=== PATIENT | female | born 1975 | race Caucasian/White ===

== ENCOUNTER 2021-10-21 14:58 | Inpatient (IN) | payer OTHER ==
[~2021-10-21] VITALS: Ht 167.6 cm; Wt 64.0 kg
--- NOTE | 2021-10-21 15:10 | NUR ---
To ER bed 16, c/o LLQ pain radiating to left leg was at urgent care recommend ultrasound and ct abd/pelvis 10/10 pain scale, aaox3, breathing even and non labored, awaiting md crowley
--- NOTE | 2021-10-21 15:20 | NUR ---
URINE SPECIMEN SENT TO LAB
--- NOTE | 2021-10-21 15:30 | NUR ---
DR VITALE AT BEDSIDE
--- NOTE | 2021-10-21 15:50 | NUR ---
US AT BEDSIDE
[2021-10-21] MEDS ORDERED: ONDANSETRON HCL/PF 4 MG/2 ML VIAL ONE ×2 (15:52→18:21)
[2021-10-21] MEDS ORDERED: MORPHINE SULFATE INJ 4 MG/ML DISP.SYRIN ONE (15:52)
[2021-10-21 15:54] LABS: BASOPHILS # (AUTO) 0.1 K/uL (0.0-0.2); EOSINOPHILS % (AUTO) 3.3 % (0.0-6.0); HEMATOCRIT 37 % (33-45); HEMOGLOBIN 12.3 g/dL (11.5-14.8); LYMPHOCYTES # (AUTO) 1.4 K/uL (0.8-4.8); MEAN CORPUSCULAR HGB CONC 33 g/dl (31.0-36.0); MEAN CORPUSCULAR VOLUME 86 fL (82-100); MONOCYTES # (AUTO) 0.5 K/uL (0.1-1.30); MONOCYTES % (AUTO) 8.5 % (2.0-12.0); NEUTROPHILS # (AUTO) 3.6 K/uL (1.8-8.9); NEUTROPHILS % (AUTO) 62.2 % (43.0-81.0); PLATELET COUNT (AUTO) 271 K/uL (150-450); RED BLOOD CELL COUNT(AUTO) 4.32 MIL/uL (4.0-5.2); WHITE BLOOD COUNT (AUTO) 5.8 K/uL (4.3-11.0)
[2021-10-21 16:00] LABS: BILIRUBIN,URINE NEGATIVE (NEGATIVE); COLOR,URINE YELLOW (YELLOW); LEUKOCYTE ESTERASE ,URINE NEGATIVE (NEGATIVE); NITRITE, URINE NEGATIVE (NEGATIVE); PH,URINE 6.5 (5.0-8.0); PROTEIN,URINE NEGATIVE (NEGATIVE); UGLUCOSE NEGATIVE (NEGATIVE); UROBILINOGEN,URINE 0.2 EU/dL (0.2)
[2021-10-21] MEDS ORDERED: MORPHINE SULFATE INJ 2 MG/ML DISP.SYRIN IV ONE ×2 (16:00→18:00)
[2021-10-21] MEDS ORDERED: IV NS 0.9% 1,000 ML BAG IV ONE (16:00)
[2021-10-21] MEDS ORDERED: ONDANSETRON HCL/PF 4 MG/2 ML VIAL IV ONE ×2 (16:00→18:30)
[2021-10-21 16:06] LABS: CREATININE 0.7 mg/dL (0.6-1.3); POTASSIUM 3.6 mmol/L (3.5-5.1)
[2021-10-21 16:14] LABS: ALBUMIN 3.7 g/dL (3.4-5.0); BILIRUBIN,DIRECT 0.1 mg/dL (0.0-0.2); BILIRUBIN,TOTAL 0.3 mg/dL (0.2-1.0); TOTAL PROTEIN, SERUM 7.2 g/dL (6.4-8.2)
--- NOTE | 2021-10-21 16:51 | NUR ---
TAKEN TO CT
[2021-10-21] MEDS ORDERED: IOHEXOL-300 100 ML VIAL IV ONE (16:53)
[2021-10-21] MEDS ORDERED: IV NS 0.9% 250 ML IV ONE (16:53)
--- NOTE | 2021-10-21 18:08 | NUR ---
CALLED DR. LAURIE BUCHANAN [facility] --> [phone] EDUCATION COURSES SALES REPRESENTATIVE PAGED.
[2021-10-21] MEDS ORDERED: MORPHINE SULFATE INJ 2 MG/ML DISP.SYRIN ONE (18:13)
--- NOTE | 2021-10-21 18:22 | NUR ---
CALLED DR. KYARA MARIA SPEAKING WITH DR. VITALE.
--- NOTE | 2021-10-21 18:58 | NUR ---
COVID SWAB DONE AND SENT TO LAB
--- NOTE | 2021-10-21 21:02 | NUR ---
REPORT GIVEN TO CORAL KHAN
--- NOTE | 2021-10-21 21:18 | NUR ---
TRANSFERRED TO [facility] IN STABLE CONDITION
[2021-10-21 21:30] VITALS: BP 98/59
[2021-10-21] MEDS ORDERED: Z GUARD REMEDY 4 OZ OINT TP PRN (21:30)
[2021-10-21] MEDS ORDERED: ONDANSETRON HCL/PF 4 MG/2 ML VIAL IVP PRN (21:30)
[2021-10-21] MEDS ORDERED: MORPHINE SULFATE INJ 2 MG/ML DISP.SYRIN IV PRN (21:30)
[2021-10-21] MEDS ORDERED: MAG HYDROX/AL HYDROX/SIMETH 30 ML UDC PO PRN (21:30)
--- NOTE | 2021-10-21 21:30 | NUR ---
MS INSOLE COVERER NOTES RECEIVED PATIENT FROM ER VIA STRETCHER; AWAKE, ALERT AND ORIENTED X4. ABLE TO MAKE NEEDS KNOWN. ON ROOM AIR, TOLERATING WELL. NO SOB NOTED. NOT IN ANY FORM OF ACUTE DISTRESS. WITH IV ACCESS AT LEFT ANTECUBITAL G#20, SALINE LOCKED. VS TAKEN AND RECORDED FOLLOWS: BP-98/59 MMHG, LA-68BPM, RR-18BPM, TEMP-97.8, PULSE OX O2 SATURATION-100%. SKIN ASSESSMENT DONE; INTACT. SAFETY MEASURES IMPLEMENTED: CALL BUTTON AND TABLE WITHIN EASY REACH, SIDE RAILS UP X2, BED IN LOWEST LOCKED POSITION. WILL CONTINUE TO MONITOR
--- NOTE | 2021-10-21 22:10 | NUR ---
MS RN NOTES PRN SLEEP MED TEMAZEPAM 15 MG 1 CAP GIVEN PO PER PATIENT'S REQUEST; WILL CONTINUE TO MONITOR
[2021-10-22 06:14] LABS: CALCIUM, SERUM 8.4 mg/dL (8.5-10.1); CREATININE 0.7 mg/dL (0.6-1.3); MAGNESIUM 1.8 mg/dL (1.8-2.4); PHOSPHORUS 5.2 mg/dL (2.5-4.9)
[2021-10-22 06:45] LABS: BASOPHILS % (AUTO) 0.9 % (0.0-2.0); EOSINOPHILS % (AUTO) 4.6 % (0.0-6.0); HEMATOCRIT 33 % (33-45); HEMOGLOBIN 10.8 g/dL (11.5-14.8); LYMPHOCYTES # (AUTO) 1.6 K/uL (0.8-4.8); LYMPHOCYTES % (AUTO) 38.3 % (20.0-44.0); MEAN CORPUSCULAR HGB CONC 33 g/dl (31.0-36.0); MEAN CORPUSCULAR VOLUME 85 fL (82-100); MONOCYTES # (AUTO) 0.3 K/uL (0.1-1.30); MONOCYTES % (AUTO) 8.3 % (2.0-12.0); NEUTROPHILS % (AUTO) 47.9 % (43.0-81.0); PLATELET COUNT (AUTO) 219 K/uL (150-450); RED BLOOD CELL COUNT(AUTO) 3.82 MIL/uL (4.0-5.2); WHITE BLOOD COUNT (AUTO) 4.1 K/uL (4.3-11.0)
--- NOTE | 2021-10-22 07:07 | NUR ---
MS RN CLOSING NOTES PATIENT IN BED; AWAKE, A/O X4. ON ROOM AIR, TOLERATING WELL. NOT IN ANY FORM OF ACUTE DISTRESS. SAFETY MEASURES IN PLACE. NEEDS ATTENDED. ENDORSED TO MORNING SHIFT FOR CONTINUITY OF CARE.
--- NOTE | 2021-10-22 07:30 | NUR ---
MS RN OPENING NOTES RECEIVED PATIENT IN BED; AWAKE, A/O X4. ON ROOM AIR, TOLERATING WELL. NOT IN ANY FORM OF ACUTE DISTRESS AND DISCOMFORT. IV IS IN LEFT AC, 20G SL. SAFETY MEASURES IN PLACE. NEEDS ATTENDED. WILL CONTINUE TO MONITOR FOR CONTINUITY OF CARE.
[2021-10-22 08:00] VITALS: BP 128/57
[2021-10-22] MEDS: PANTOPRAZOLE 40 MG TABLET.DR PO SCH (08:41)
[2021-10-22] MEDS: HYDROCODONE/APAP 5/325MG TABLET PO PRN (11:03)
[2021-10-22] MEDS ORDERED: IV NS 0.9% 250 ML IV ONE (13:46)
[2021-10-22] MEDS ORDERED: IOHEXOL-350 100 ML VIAL IV ONE (13:46)
[2021-10-22 16:00] VITALS: BP 101/62
--- NOTE | 2021-10-22 18:57 | NUR ---
MS RN CLOSING NOTES PATIENT IN BED; AWAKE, A/O X4. ON ROOM AIR, TOLERATING WELL. NOT IN ANY FORM OF ACUTE DISTRESS AND DISCOMFORT. IV IS IN LEFT AC, 20G SL. SAFETY MEASURES IN PLACE. NEEDS ATTENDED. WILL ENDORSE PATIENT TO ONCOMING SHIFT FOR CONTINUITY OF CARE.
--- NOTE | 2021-10-22 19:30 | NUR ---
MS RN OPENING NOTE RECEIVED PATIENT IN BED, A/OX4. IN ROOM WITH PATIENT. NO S/S OF APPARENT DISTRESS IN ROOM AIR. PAIN TOLERABLE AT THIS TIME PER PATIENT. ORIENTED AND ENCOURAGED WITH THE USE OF BED LIGHT. NO FLUIDS RUNNING AT THIS TIME. SAFETY IN PLACE. WILL CONTINUE WITH PATIENT'S CARE PLAN.
[2021-10-22 20:00] VITALS: BP 107/71
[2021-10-22] MEDS ORDERED: DEXAMETHASONE SOD PHOSPHATE 10 MG/ML VIAL IV SCH (22:00)
--- NOTE | 2021-10-22 23:00 | NUR ---
MS RN NOTE DR. MARIA TALKED TO PATIENT AND AT BED SIDE. WELL A TELEPHONE CALL FROM DR. WINTER. NEURO DR. CROWE CONSULTED WELL ON BOARD ON PATIENT'S CASE. DOCTOR CANDACE TO ORDER STEROIDS FOR PATIENT. DOCTOR EXPLAINED RISKS AND BENEFITS OF MEDICATION. PATIENT AND AGREED AND ACKNOWLEDGE. WILL FOLLOW THROUGH DOCTOR'S ORDERS.
[2021-10-22] MEDS: DEXAMETHASONE SOD PHOSPHATE 10 MG/ML VIAL IV SCH (23:20)
--- NOTE | 2021-10-22 23:20 | NUR ---
MS RN NOTE DECADRON INJ 6MG ORDERED BY DR. MARIA. ORDER CARRIED OUT. WILL MONITOR PATIENT.
--- NOTE | 2021-10-23 00:17 | NUR ---
MS RN NOTE- NON-ADMIN DECADRON INJ GIVEN @2300. ORDER IS Q6. WILL GIVE NEXT DOSE @0600 AM. CHARGE NURSE AWARE.
[2021-10-23 06:21] LABS: BASOPHILS % (AUTO) 0.2 % (0.0-2.0); HEMATOCRIT 35 % (33-45); HEMOGLOBIN 11.6 g/dL (11.5-14.8); LYMPHOCYTES # (AUTO) 0.5 K/uL (0.8-4.8); LYMPHOCYTES % (AUTO) 8.1 % (20.0-44.0); MEAN CORPUSCULAR HGB CONC 33 g/dl (31.0-36.0); MEAN CORPUSCULAR VOLUME 85 fL (82-100); MONOCYTES # (AUTO) 0.1 K/uL (0.1-1.30); MONOCYTES % (AUTO) 0.8 % (2.0-12.0); NEUTROPHILS % (AUTO) 90.9 % (43.0-81.0); PLATELET COUNT (AUTO) 249 K/uL (150-450); RED BLOOD CELL COUNT(AUTO) 4.12 MIL/uL (4.0-5.2); WHITE BLOOD COUNT (AUTO) 6.6 K/uL (4.3-11.0)
[2021-10-23] MEDS: DEXAMETHASONE SOD PHOSPHATE 10 MG/ML VIAL IV SCH ×4 (06:23→17:13)
[2021-10-23 06:35] LABS: ALBUMIN 3.3 g/dL (3.4-5.0); BILIRUBIN,TOTAL 0.2 mg/dL (0.2-1.0); CALCIUM, SERUM 8.8 mg/dL (8.5-10.1); CREATININE 0.8 mg/dL (0.6-1.3); TOTAL PROTEIN, SERUM 6.4 g/dL (6.4-8.2)
[2021-10-23 06:40] LABS: THYROID STIMULATING HORMONE 1.58 uIU/mL (0.358-3.74)
--- NOTE | 2021-10-23 07:30 | NUR ---
MS RN OPENING NOTE RECEIVED PATIENT IN BED, ASLEEP, EASILY AWAKEN BY VERBAL AND TACTILE STIMULI. NO S/S OF APPARENT DISTRESS IN ROOM AIR. PAIN TOLERABLE AT THIS TIME PER PATIENT. IV ACCESS ON LAC G#20, PATENT AND FLUSHES WELL. SAFETY PRECAUTIONS IN PLACE: BED ON LOWEST LOCKED POSITION, SIDE RAILS UP X 2, CALL LIGHT WITHIN EASY REACH. WILL CONTINUE TO MONITOR ACCORDINGLY.
--- NOTE | 2021-10-23 07:37 | NUR ---
MS RN CLOSING REPORT GIVEN TO WINSTON FOR CONTINUITY OF CARE.
[2021-10-23] MEDS: PANTOPRAZOLE 40 MG TABLET.DR PO SCH (07:44)
[2021-10-23 08:00] VITALS: BP 107/60
[2021-10-23] MEDS: HYDROCODONE/APAP 5/325MG TABLET PO PRN ×2 (09:48→19:55)
--- NOTE | 2021-10-23 10:09 | NUR ---
ATTEMPTED US THYROID AND GROIN EXAM AT 9:30 AM RN STOPPED THE ULTRASOUND EXAM TO SEND PT TO MRI. SHE WAS INFORMED THAT ULTRASOUND EXAM MIGHT BE DELAYED LATER DUE TO UPCOMING ER EXAMS.
--- NOTE | 2021-10-23 14:10 | NUR ---
RN NOTES MRI RESULTS RELAYED TO DR. WINTER AND DR. MARIA.
[2021-10-23 16:00] VITALS: BP_SYST 104; BP_SYST 109; BP_DIAS 60
[2021-10-23] MEDS: GABAPENTIN 300 MG CAPSULE PO SCH ×2 (17:29→17:45)
--- NOTE | 2021-10-23 18:37 | NUR ---
MS RN CLOSING NOTE PATIENT IN BED, ASLEEP, EASILY AWAKEN BY VERBAL AND TACTILE STIMULI. NO S/S OF APPARENT DISTRESS IN ROOM AIR. PAIN TOLERABLE AT THIS TIME PER PATIENT. IV ACCESS ON LAC G#20, PATENT AND FLUSHES WELL. SAFETY PRECAUTIONS IN PLACE: BED ON LOWEST LOCKED POSITION, SIDE RAILS UP X 2, CALL LIGHT WITHIN EASY REACH. ALL NEEDS ATTENDED AND MET. DUE MEDS GIVEN ORDERED. PAIN MANAGED BY PAIN MEDICATION DURING THE SHIFT. WILL ENDORSE TO ONCOMING SHIFT FOR ISABEL.
[2021-10-23 20:00] VITALS: BP 109/64
--- NOTE | 2021-10-23 20:00 | NUR ---
MS RN NOTE PATIENT C/O LEFT GROIN AND RIGHT HIP PAIN, WELL HEADACHE. NORCO 5-325 MG PO GIVEN ORDERED. WILL CONTINUE TO MONITOR PATIENT
[2021-10-23] MEDS: ACETAMINOPHEN 325 MG TABLET PO PRN (21:34)
--- NOTE | 2021-10-23 21:34 | NUR ---
MS RN NOTE PATIENT STILL EXPERIENCING HEADACHE, TYLENOL 650 MG PO GIVEN ORDERED. WILL CONTINUE TO MONITOR PATIENT
[2021-10-23] MEDS: TEMAZEPAM 15 MG CAPSULE PO PRN (23:52)
--- NOTE | 2021-10-24 07:04 | NUR ---
MS RN CLOSING NOTE PATIENT SLEEPING IN BED, ALERT/ORIENTED X 4, PT ABLE TO MAKE NEEDS KNOWN. PATIENT STABLE ON RA, NO S/S OF DISTRESS OR SOB NOTED, BREATHING EVEN AND UNLABORED. MEDICATIONS GIVEN ORDERED, PT NEEDS MET THROUGHOUT SHIFT. SAFETY MEASURES IN PLACE: CALL LIGHT WITHIN REACH, SIDE RAILS UP X 2, BED LOCKED IN LOWEST POSITION, BED ALARM ON. WILL ENDORSE TO DAY SHIFT NURSE FOR CONTINUITY OF CARE
--- NOTE | 2021-10-24 07:55 | NUR ---
MS RN OPENING NOTE Patient in bed, awake. A/O x 4, able to make needs known. On room air, breathing evenly and unlabored. No SOB or s/s of distress noted. IV access on LAC #20 SL, intact and patent. Patient denies any pain or discomfort at this time. Safety precautions in place: bed in low, locked position; siderails up x 2; call light within reach. Will continue to monitor.
[2021-10-24 08:06] LABS: CANCER AG, 125 10.8 U/mL (0.0-38.1); IMMUNOGLOBULIN A, SERUM 309 mg/dL (87-352); IMMUNOGLOBULIN G, SERUM 798 mg/dL (586-1602); IMMUNOGLOBULIN M, SERUM 151 mg/dL (26-217)
[2021-10-24] MEDS: GABAPENTIN 300 MG CAPSULE PO SCH ×2 (08:21→16:45)
[2021-10-24] MEDS: PANTOPRAZOLE 40 MG TABLET.DR PO SCH (08:21)
[2021-10-24] MEDS: DEXAMETHASONE SOD PHOSPHATE 10 MG/ML VIAL IV SCH ×2 (08:22→21:44)
[2021-10-24] MEDS: HYDROCODONE/APAP 5/325MG TABLET PO PRN ×2 (09:46→21:55)
--- NOTE | 2021-10-24 09:46 | NUR ---
RN NOTE Patient complained of pain on the right side of her rib area 7/10 on pain scale. PRN [place] 5/325 PO given. Will continue to monitor patient.
--- NOTE | 2021-10-24 19:33 | NUR ---
MS RN CLOSING NOTE Patient in bed, awake. A/O x 4, able to make needs known. Stable on room air, breathing evenly and unlabored. No SOB or s/s of distress noted. IV access on LAC #20 SL, intact and patent. Patient states that she feels better today than yesterday. Due meds given. All needs attended to. Safety precautions maintained: bed in low, locked position; siderails up x 2; call light within reach. Will endorse to evening or night nurse supervisor nurse for ISABEL.
--- NOTE | 2021-10-24 20:30 | NUR ---
MS RN NOTE PATIENT REQUESTING TO SHOWER, CONTACTED TOOL AND DIE SUPERVISOR MD WITH ORDERS OKAY TO SHOWER. ASSISTED PATIENT TO SHOWER, SHOWER CHAIR IN SHOWER, TOWELS AND GOWN PROVIDED. ASSISTING PATIENT TO SHOWER. WILL CONTINUE TO MONITOR
[2021-10-24] MEDS: TEMAZEPAM 15 MG CAPSULE PO PRN (23:16)
[2021-10-25 06:20] LABS: BASOPHILS % (AUTO) 0.1 % (0.0-2.0); HEMATOCRIT 32 % (33-45); HEMOGLOBIN 10.6 g/dL (11.5-14.8); LYMPHOCYTES # (AUTO) 0.7 K/uL (0.8-4.8); LYMPHOCYTES % (AUTO) 5.8 % (20.0-44.0); MEAN CORPUSCULAR HGB CONC 33 g/dl (31.0-36.0); MEAN CORPUSCULAR VOLUME 85 fL (82-100); MONOCYTES # (AUTO) 0.3 K/uL (0.1-1.30); MONOCYTES % (AUTO) 2.5 % (2.0-12.0); NEUTROPHILS # (AUTO) 11.6 K/uL (1.8-8.9); NEUTROPHILS % (AUTO) 91.6 % (43.0-81.0); PLATELET COUNT (AUTO) 233 K/uL (150-450); RED BLOOD CELL COUNT(AUTO) 3.77 MIL/uL (4.0-5.2); WHITE BLOOD COUNT (AUTO) 12.7 K/uL (4.3-11.0)
--- NOTE | 2021-10-25 07:19 | NUR ---
MS RN CLOSING NOTE PATIENT SLEEPING IN BED, ALERT/ORIENTED X 4, PT ABLE TO MAKE NEEDS KNOWN. PATIENT STABLE ON RA, NO S/S OF DISTRESS OR SOB NOTED, BREATHING EVEN AND UNLABORED. MEDICATIONS GIVEN ORDERED, PT NEEDS MET THROUGHOUT SHIFT. PATIENT KEPT NPO THROUGHOUT SHIFT FOR PROCEDURE TODAY. SAFETY MEASURES IN PLACE: CALL LIGHT WITHIN REACH, SIDE RAILS UP X 2, BED LOCKED IN LOWEST POSITION, BED ALARM ON. WILL ENDORSE TO DAY SHIFT NURSE FOR CONTINUITY OF CARE
--- NOTE | 2021-10-25 07:21 | NUR ---
ms rn received on bed, awake,alert oriented x4,not in any form of distress, respirations even and unlabored,no sob noted, lungs are clear,abdomen soft,positive bowel sounds, denies pain at this time,all needs attended.
[2021-10-25 08:00] VITALS: BP 111/62
--- NOTE | 2021-10-25 09:50 | NUR ---
ms rn due meds ,tolerated well, patient is npo exept meds, for thyroid biopsy and iliac biopsy today.
[2021-10-25] MEDS: DEXAMETHASONE SOD PHOSPHATE 10 MG/ML VIAL IV SCH (11:00)
[2021-10-25] MEDS: GABAPENTIN 300 MG CAPSULE PO SCH ×2 (11:00→18:37)
[2021-10-25] MEDS: PANTOPRAZOLE 40 MG TABLET.DR PO SCH (11:00)
[2021-10-25] MEDS ORDERED: oxyCODONE/APAP (5/325 MG) 1 UDTAB TABLET PO PRN (12:00)
--- NOTE | 2021-10-25 12:00 | NUR ---
ms manpreet storey np confirmed that both biopsy procedure will be done in am due to no available pathologist today.
[2021-10-25 15:07] LABS: *SPE A/G RATIO 1.1 (0.7-1.7); *SPE ALPHA-1-GLOBULIN 0.2 g/dL (0.0-0.4); *SPE ALPHA-2-GLOBULIN 0.7 g/dL (0.4-1.0); *SPE M-SPIKE Not Observed g/dL (Not Observed)
[2021-10-25 16:00] VITALS: BP 103/56
--- NOTE | 2021-10-25 17:30 | NUR ---
ms rn on bed, due meds given, tolerarted well,
--- NOTE | 2021-10-25 18:16 | NUR ---
ms rn on bed, no distress noted,nppo post mn, patient is aware.
[2021-10-25] MEDS: DEXAMETHASONE SOD PHOSPHATE 4 MG/ML VIAL IV SCH (18:37)
[2021-10-25] MEDS: MAGNESIUM HYDROXIDE 30 ML UDC PO PRN (18:45)
--- NOTE | 2021-10-25 20:20 | NUR ---
RN OPENING NOTE PATIENT AWAKE IN BED W/ AT BEDSIDE. A/OX4. NO S/S OF DISTRESS, BREATHING WELL ON RM AIR. LAC #20 SL INTACT AND PATENT. SAFETY MEASURES IN PLACE: BED AT LOWEST POSITION, LOCKED, RAILS UP X3, CALL BURNS WITHIN REACH. WILL CONTINUE TO MONITOR PATIENT.
[2021-10-25] MEDS: HYDROCODONE/APAP 5/325MG TABLET PO PRN (21:38)
[2021-10-25] MEDS: TEMAZEPAM 15 MG CAPSULE PO PRN (22:55)
[2021-10-26] VITALS (11 sets, daily range): BP systolic 96–121; BP diastolic 46–76
[2021-10-26 06:42] LABS: HEMATOCRIT 33 % (33-45); LYMPHOCYTES # (AUTO) 1.3 K/uL (0.8-4.8); LYMPHOCYTES % (AUTO) 8.4 % (20.0-44.0); MEAN CORPUSCULAR HGB CONC 33 g/dl (31.0-36.0); MEAN CORPUSCULAR VOLUME 86 fL (82-100); MONOCYTES # (AUTO) 0.9 K/uL (0.1-1.30); MONOCYTES % (AUTO) 5.7 % (2.0-12.0); NEUTROPHILS # (AUTO) 13.2 K/uL (1.8-8.9); NEUTROPHILS % (AUTO) 85.9 % (43.0-81.0); PLATELET COUNT (AUTO) 231 K/uL (150-450); RED BLOOD CELL COUNT(AUTO) 3.85 MIL/uL (4.0-5.2); WHITE BLOOD COUNT (AUTO) 15.4 K/uL (4.3-11.0)
--- NOTE | 2021-10-26 06:51 | NUR ---
RN CLOSING NOTE PATIENT ASLEEP IN BED. A/OX4. NO S/S OF DISTRESS, BREATHING WELL ON ROOM AIR. LAC #20 SL INTACT AND PATENT. SAFETY MEASURES IN PLACE: BED AT LOWEST POSITION, LOCKED, RAILS UP X3, CALL BURNS WITHIN REACH. Addendum: 10/26/21 at 0792 by GIUSEPPE NOYOLA RN REPORT GIVEN AND ACKNOWLEDGED BY RNLIN FOR ISABEL.
--- NOTE | 2021-10-26 07:30 | NUR ---
received pt. in am alert and oriented x4,vs stable.no complaints offered.npo except for meds.
[2021-10-26] MEDS: GABAPENTIN 300 MG CAPSULE PO SCH ×2 (10:27→17:22)
[2021-10-26] MEDS: PANTOPRAZOLE 40 MG TABLET.DR PO SCH (10:27)
[2021-10-26] MEDS: DEXAMETHASONE SOD PHOSPHATE 4 MG/ML VIAL IV SCH (10:27)
[2021-10-26] MEDS ORDERED: FENTANYL PF 100MCG/2ML AMPUL IV PRN (11:00)
[2021-10-26] MEDS ORDERED: MIDAZOLAM HCL 2 MG/2ML VIAL IV ONE ×2 (11:00→12:48)
--- NOTE | 2021-10-26 11:10 | NUR ---
RN NOTES RECEIVED PT IN CT ROOM , A/OX3, ON RA, O2 SAT WNL, VSS STABLE , NO DISRESS NOTED , CONTINUE TO MONITOR.
[2021-10-26] MEDS ORDERED: FLUMAZENIL 0.5 MG VIAL IV PRN (11:30)
[2021-10-26] MEDS ORDERED: NALOXONE PREFILLED SYRINGE 2 MG/2 ML SYRINGE IV PRN (11:30)
[2021-10-26] MEDS: MIDAZOLAM HCL 2 MG/2ML VIAL IV PRN ×2 (11:47→11:51)
[2021-10-26] MEDS: FENTANYL PF 250MCG/5ML AMPUL IV PRN ×3 (11:49→12:23)
--- NOTE | 2021-10-26 12:18 | NUR ---
RN NOTES VSS STABLE , PT TOLERTING THE PROCEDURE WELL, DR CESPEDES AT THE BED SIDE ,CONTINUE TO MONITOR.
--- NOTE | 2021-10-26 12:40 | NUR ---
RN NOTES VSS STABLE PT TOLERATED THE PROCEDURE WELL, NO DISTRESS NOTED, PT BACK TO ROOM PER MD ORDER ,
--- NOTE | 2021-10-26 12:43 | NUR ---
RN NOTES PT BACK TO ROOM ,STABLE , VERBALLY RESPONDING , FOLLOWS COMMAND, DRAWZY, REPORT GIVEN TO KING MONCADA FOR CONTINUITY OF CARE
[2021-10-26] MEDS ORDERED: FENTANYL PF 100MCG/2ML AMPUL IV ONE (12:48)
--- NOTE | 2021-10-26 13:30 | NUR ---
returned from ct rm.vs stable,very groggy,but arousable.
--- NOTE | 2021-10-26 16:30 | NUR ---
slept for several hrs after bx.vs stable,voided,steady on ft.
--- NOTE | 2021-10-26 18:00 | NUR ---
spouse at bedside all day.
[2021-10-26] MEDS: HYDROCODONE/APAP 5/325MG TABLET PO PRN (20:50)
[2021-10-27 07:42] LABS: BASOPHILS % (AUTO) 0.1 % (0.0-2.0); EOSINOPHILS % (AUTO) 0.1 % (0.0-6.0); HEMATOCRIT 33 % (33-45); LYMPHOCYTES # (AUTO) 2.1 K/uL (0.8-4.8); LYMPHOCYTES % (AUTO) 22.3 % (20.0-44.0); MEAN CORPUSCULAR HGB CONC 34 g/dl (31.0-36.0); MEAN CORPUSCULAR VOLUME 85 fL (82-100); MONOCYTES # (AUTO) 0.8 K/uL (0.1-1.30); MONOCYTES % (AUTO) 8.5 % (2.0-12.0); NEUTROPHILS # (AUTO) 6.4 K/uL (1.8-8.9); PLATELET COUNT (AUTO) 234 K/uL (150-450); RED BLOOD CELL COUNT(AUTO) 3.87 MIL/uL (4.0-5.2); WHITE BLOOD COUNT (AUTO) 9.3 K/uL (4.3-11.0)
[2021-10-27 07:43] LABS: CALCIUM, SERUM 8.3 mg/dL (8.5-10.1); CREATININE 0.6 mg/dL (0.6-1.3); POTASSIUM 3.9 mmol/L (3.5-5.1)
[2021-10-27 08:00] VITALS: BP 100/65
--- NOTE | 2021-10-27 08:00 | NUR ---
RECEIVED PT. IN AM ALERT AND ORIENTED,IN [employer] SP[employer]ITS,VS STABLE.
[2021-10-27] MEDS: GABAPENTIN 300 MG CAPSULE PO SCH ×2 (08:14→17:28)
[2021-10-27] MEDS: PANTOPRAZOLE 40 MG TABLET.DR PO SCH (08:14)
[2021-10-27 09:08] LABS: CANCER AG, 15-3 8.6 U/mL (0.0-25.0)
[2021-10-27 13:51] LABS: IRON, SERUM 35 ug/dl (50-175); TOTAL IRON BINDING CAPACITY 271 ug/dl (250-450)
[2021-10-27 14:06] LABS: FERRITIN 5 ng/mL (8-388)
[2021-10-27 16:07] VITALS: BP 102/65
--- NOTE | 2021-10-27 17:00 | NUR ---
IV REMOVED PER PT. REQUEST.C/O PAIN ABOVE IV SITE LT. AC,REMOVED HEP LOCK.ICE PACK TO SITE.
[2021-10-27] MEDS: MAGNESIUM HYDROXIDE 30 ML UDC PO PRN (17:34)
--- NOTE | 2021-10-27 18:23 | NUR ---
GIVEN MOM FOR CONSTIPATION.
--- NOTE | 2021-10-27 19:42 | NUR ---
MS RN OPENING NOTES RECEIVED PATIENT LYING IN BED AWAKE. A/O X4. ON BEDSIDE. DENIES PAIN AT THIS TIME. BREATHING EVEN AND NON-LABORED ON ROOM AIR. NOT IN APPARENT DISTRESS. NO IV ACCESS. MILD REDNESS STILL NOTED ON LEFT ANTECUBITAL IV SITE. SAFETY MEASURES IN PLACE. WILL CONTINUE PLAN OF CARE.
[2021-10-27 20:00] VITALS: BP 107/62
[2021-10-27] MEDS: HYDROCODONE/APAP 5/325MG TABLET PO PRN (20:46)
--- NOTE | 2021-10-27 20:48 | NUR ---
MS RN NOTES PATIENT C/O PAIN 7/10 ON HER LEFT GROIN RADIATING TO HER LEFT LEG. VS WNL. PRN [place]CO 5-325 ADMINISTERED AND TOLERATED WELL. OFFERED TO RE-INSERT ANOTHER IV ACCESS BUT PATIENT REFUSED. EXPLAINED IMPORTANCE, STILL REFUSED AND VERBALIZED SHE WANTS THE PREVIOUS IV SITE TO HEAL FIRST.
--- NOTE | 2021-10-28 06:35 | NUR ---
MS RN CLOSING NOTES PATIENT LYING IN BED AWAKE. A/O X4. TOLERATING ROOM AIR WELL. NO C/O PAIN OR DISCOMFORT AT THIS TIME. NO IV ACCESS. HAD 1 BM LAST NIGHT BUT PATIENT DIDN'T INFORM NURSE. UNABLE TO COLLECT STOOL SAMPLE, WILL ENDORSE TO AM NURSE. SAFETY PRECAUTIONS IN PLACE: BED LOW AND LOCKED, SIDE RAILS UP X2, CALL LIGHT WITHIN REACH.
[2021-10-28 07:03] LABS: CALCIUM, SERUM 8.4 mg/dL (8.5-10.1); CREATININE 0.7 mg/dL (0.6-1.3)
[2021-10-28 07:11] LABS: BASOPHILS % (AUTO) 0.4 % (0.0-2.0); EOSINOPHILS % (AUTO) 0.3 % (0.0-6.0); HEMATOCRIT 33 % (33-45); HEMOGLOBIN 11.3 g/dL (11.5-14.8); LYMPHOCYTES % (AUTO) 14.6 % (20.0-44.0); MEAN CORPUSCULAR HGB CONC 34 g/dl (31.0-36.0); MEAN CORPUSCULAR VOLUME 84 fL (82-100); MONOCYTES # (AUTO) 0.6 K/uL (0.1-1.30); MONOCYTES % (AUTO) 9.5 % (2.0-12.0); NEUTROPHILS % (AUTO) 75.2 % (43.0-81.0); PLATELET COUNT (AUTO) 192 K/uL (150-450); RED BLOOD CELL COUNT(AUTO) 3.95 MIL/uL (4.0-5.2); WHITE BLOOD COUNT (AUTO) 6.7 K/uL (4.3-11.0)
--- NOTE | 2021-10-28 07:48 | NUR ---
MS RN OPENING NOTE Patient in bed, asleep. A/O x 4. On room air, breathing evenly and unlabored. No SOB or s/s of distress noted. No IV access, Dr. Nair aware. Safety precautions in place: bed in low, locked position; sideails up x 2; call light within reach. Will continue to monitor.
[2021-10-28] MEDS: PANTOPRAZOLE 40 MG TABLET.DR PO SCH (08:23)
[2021-10-28] MEDS: GABAPENTIN 300 MG CAPSULE PO SCH ×2 (08:23→16:18)
[2021-10-28] MEDS: ACETAMINOPHEN 325 MG TABLET PO PRN (11:07)
--- NOTE | 2021-10-28 11:26 | NUR ---
RN NOTE Patient complained of increased sweating, being hot, dizziness, headache, and increased weakness. VS taken as follows: Temp 98.5, BP 118/76, FL 81/min, RR 19, SPO2 98%. Cooling measures given: ice packs placed under both arms, asked patient to drink cold water, wet wash cloth placed on patient's forehead. Tylenol 650 mg PRN given for headache. Dr. Hurd and Dr. Nair notified. No new orders at this time.
--- NOTE | 2021-10-28 12:00 | NUR ---
RN NOTE IV re-insertion attempted, failed x1. Patient refused to be re-inserted again.
[2021-10-28] MEDS ORDERED: GADOTERATE MEGLUMINE 5 MMOL/10 ML VIAL IV ONE (12:10)
--- NOTE | 2021-10-28 12:39 | NUR ---
RN NOTE Patient states that she is feeling better. Headache is still there but has subsided. Patient now sitting up in bed, eating lunch. Will continue to monitor.
--- NOTE | 2021-10-28 15:20 | NUR ---
RN NOTE Report given to Silivo from [facility]. Addendum: 10/28/21 at 1906 by PRADIP CHAMBERLAIN RN CORRECTION: WRONG PATIENT
--- NOTE | 2021-10-28 19:15 | NUR ---
MS RN OPENING NOTES RECEIVED PATIENT IN BED; AWAKE, ALERT AND ORIENTED X4. ON ROOM AIR, WELL TOLERATED. NO SHORTNESS OF BREATH NOTED. NOT IN ANY FORM OF RESPIRATORY DISTRESS. DENIES ANY PAIN OR DISCOMFORT AT THIS TIME. NO IV ACCESS. ABLE TO MAKE NEEDS KNOWN. SAFETY MEASURES IMPLEMENTED: CALL BUTTON AND TABLE WITHIN EASY REACH, SIDE RAILS UP X2, BED IN LOWEST LOCKED POSITION. WILL CONTINUE PLAN OF CARE.
--- NOTE | 2021-10-28 19:32 | NUR ---
MS RN CLOSING NOTE Patient in bed, resting. A/O x 4, able to make needs known. Stable on room air, breathing evenly and unlabored. No SOB or s/s of distress noted. No IV access, Dr. Nair aware. Due meds given. All needs attended to. Safety precautions maintained: bed in low, locked position; siderails up x 2; call light within reach. Will endorse to shift commander nurse for ISABEL.
[2021-10-28 20:00] VITALS: BP 110/77
[2021-10-28 20:05] VITALS: BP 110/77
[2021-10-28 22:23] LABS: OCCULT BLOOD STOOL NEGATIVE (NEGATIVE)
[2021-10-29] MEDS: ACETAMINOPHEN 325 MG TABLET PO PRN (01:37)
[2021-10-29 06:22] LABS: BASOPHILS % (AUTO) 0.5 % (0.0-2.0); EOSINOPHILS % (AUTO) 1.5 % (0.0-6.0); HEMATOCRIT 34 % (33-45); HEMOGLOBIN 11.5 g/dL (11.5-14.8); LYMPHOCYTES # (AUTO) 1.1 K/uL (0.8-4.8); LYMPHOCYTES % (AUTO) 24.4 % (20.0-44.0); MEAN CORPUSCULAR HGB CONC 34 g/dl (31.0-36.0); MEAN CORPUSCULAR VOLUME 84 fL (82-100); MONOCYTES # (AUTO) 0.5 K/uL (0.1-1.30); MONOCYTES % (AUTO) 12.4 % (2.0-12.0); NEUTROPHILS # (AUTO) 2.6 K/uL (1.8-8.9); NEUTROPHILS % (AUTO) 61.2 % (43.0-81.0); PLATELET COUNT (AUTO) 194 K/uL (150-450); WHITE BLOOD COUNT (AUTO) 4.3 K/uL (4.3-11.0)
[2021-10-29 06:52] LABS: CALCIUM, SERUM 8.5 mg/dL (8.5-10.1); CREATININE 0.6 mg/dL (0.6-1.3); POTASSIUM 3.8 mmol/L (3.5-5.1)
--- NOTE | 2021-10-29 06:55 | NUR ---
MS RN CLOSING NOTES PATIENT LYING IN BED; ALERT, AWAKE AND ORIENTED X4. ON ROOM AIR WELL TOLERATED. DENIES ANY PAIN OR DISCOMFORT AT THIS TIME. NO IV ACCESS. SAFETY PRECAUTIONS IN PLACE: BED LOW AND LOCKED, SIDE RAILS UP X2, CALL LIGHT WITHIN REACH. ENDORSED TO MORNING SHIFT FOR ISABEL.
--- NOTE | 2021-10-29 07:20 | NUR ---
ms rn received on bed, awake,alert,oriented x4,not in any form of distress, respirations even and unlabored,no sob noted, lungs are clear.abdomen soft,positive bowel sounds,denies pain at this time, all needs attended.
[2021-10-29] MEDS: PANTOPRAZOLE 40 MG TABLET.DR PO SCH (08:15)
[2021-10-29] MEDS: GABAPENTIN 300 MG CAPSULE PO SCH ×2 (08:15→16:37)
--- NOTE | 2021-10-29 08:30 | NUR ---
ms case breakfast served,due meds given, tolerated well.
--- NOTE | 2021-10-29 11:44 | NUR ---
ms rn patient is regularly asking and given pain meds, family at bedside. Addendum: 10/29/21 at 1146 by DONATO BASS RN disregard note, wrong patient
--- NOTE | 2021-10-29 16:28 | NUR ---
Biopsy slides and CD received. According to pathologist no special storing needed, to keep in room temperature and give to ambulance staff. Slides are secured and will be transported with pt to other hospital. Will indorse to next shift.
--- NOTE | 2021-10-29 17:19 | NUR ---
ms rn on bed, no distress noted,might be transferred to [facility],all needs attended.
[2021-10-29 20:00] VITALS: BP 92/59
[2021-10-29 20:15] VITALS: BP 92/59
--- NOTE | 2021-10-29 21:30 | NUR ---
MS RN NOTES DISCLOSURE OF HEALTH INFORMATION SIGNED BY PATIENT; HANDED TO PATIENT COPIES OF PATHOLOGY REPORT PER PATIENT'S REQUEST.
--- NOTE | 2021-10-30 07:06 | NUR ---
MS RN CLOSING NOTES PATIENT LAYING IN BED; ALERT, AWAKE AND ORIENTED X4. ON ROOM AIR WELL TOLERATED. DENIES ANY PAIN OR DISCOMFORT AT THIS TIME. NO IV ACCESS. SAFETY PRECAUTIONS IN PLACE: BED LOW AND LOCKED, SIDE RAILS UP X2, CALL LIGHT WITHIN REACH. ENDORSED TO MORNING SHIFT FOR ISABEL.
--- NOTE | 2021-10-30 07:25 | NUR ---
ms rn received on bed, awake,alert,oriented x4,not in any form of distress, respirations even and unlabored,no sob noted, lungs are clear,abdomen soft,positive bowel sounds, denies pain at this time, will monitor patient's condition.
[2021-10-30] MEDS: PANTOPRAZOLE 40 MG TABLET.DR PO SCH (07:50)
[2021-10-30 08:00] VITALS: BP 100/61
--- NOTE | 2021-10-30 09:00 | NUR ---
ms case breakfast served,due meds given,tolerated well.
[2021-10-30] MEDS: GABAPENTIN 300 MG CAPSULE PO SCH ×2 (09:33→17:36)
--- NOTE | 2021-10-30 14:49 | NUR ---
ms rn patient done showering, at bedside.
[2021-10-30 16:00] VITALS: BP 113/74
--- NOTE | 2021-10-30 19:05 | NUR ---
MS RN OPENING NOTES: RECEIVED PATIENT IN BED, AWAKE, A/O X4. NO S/S OF DISTRESS NOTED. NO COMPLAIN OF PAIN. CALL LIGHT WITHIN REACH. BED IN LOWEST AND LOCKED POSITION.
[2021-10-30 20:00] VITALS: BP 103/62
[2021-10-30] MEDS: HYDROCODONE/APAP 5/325MG TABLET PO PRN (20:45)
[2021-10-30] MEDS: MAGNESIUM HYDROXIDE 30 ML UDC PO PRN (20:50)
--- NOTE | 2021-10-31 07:29 | NUR ---
MS RN OPENING NOTES RECEIVED PATIENT AWAKE IN BED;PATIENT IS ALERT AND ORIENTED X4. ON ROOM AIR TOLERATING WELL. NO SHORTNESS OF BREATH NOTED. NO RESPIRATORY DISTRESS NOTED. DENIES ANY PAIN OR DISCOMFORT AT THIS TIME. NO IV ACCESS. ABLE TO MAKE NEEDS KNOWN. SAFETY MEASURES IN PLACE. CALL BUTTON AND TABLE WITHIN EASY REACH, SIDE RAILS UP X2, BED IN LOWEST LOCKED POSITION. WILL CONTINUE TO MONITOR.
[2021-10-31] MEDS: PANTOPRAZOLE 40 MG TABLET.DR PO SCH (07:57)
[2021-10-31] MEDS: GABAPENTIN 300 MG CAPSULE PO SCH (08:15)
--- NOTE | 2021-10-31 11:26 | NUR ---
RN NOTES RECEIVED A CALL FROM [facility] . KIERAN THE PATIENT GRAPHICS EDITOR. HE GAVE HIS NUMBER [phone] TO BE CALLED BY CLAIMS AUDITOR. CALLED [facility] EXT [phone] REPORTED THE REQUEST.
--- NOTE | 2021-10-31 14:52 | NUR ---
RN NOTES GAVE REPORT TO HEATH AT TIME 1454 . PHONE NUMBER [phone]. JOVANA VARELA
--- NOTE | 2021-10-31 15:35 | NUR ---
WORKFORCE ADVISOR NOTES DISCHARGE PATIENT IN STABLE CONDITION. NO PAIN NOTED. NO SOB NOTED. NO DISTRESS NOTED. MEDICALLY STABLE. NO IV SITE. REMOVED ID BAN . ALL NEEDS ATTENDED. 2 EMT WITH AMBULANCE TRANSFER THE PATIENT AT 1537 TO THE [facility]. VITAL SIGNS IN NORMAL RANGES. PATIENT LEFT HOSPITAL IN STABLE CONDITION. MD AND CHARGE NURSE AWARE OF THE DISCHARGE.
== END 2021-10-31 15:30 | disposition short-term general hospital (02) | DRG 427 ==
LOC: ER 15:05 → TELE 21:07 → MED 22:10
PROVIDERS: ADMIT Nurse Practitioner Acute Care; ATTEND Internal Medicine
PROC: 0QB23ZX Excision of Right Pelvic Bone, Percutaneous Approach, Diagnostic (ICD-10-PCS; principal; 2021-10-26)
PROC: 0GBG3ZX Excision of Left Thyroid Gland Lobe, Percutaneous Approach, Diagnostic (ICD-10-PCS; 2021-10-26)
DX: C73 Malignant neoplasm of thyroid gland (principal); C79.51 Secondary malignant neoplasm of bone; D64.9 Anemia, unspecified; G54.9 Nerve root and plexus disorder, unspecified; G89.29 Other chronic pain; K59.03 Drug induced constipation; Z20.822 Contact with and (suspected) exposure to COVID-19; Z88.8 Allergy status to other drugs, medicaments and biological substances; Z98.890 Other specified postprocedural states; R59.0 Localized enlarged lymph nodes; Z86.018 Personal history of other benign neoplasm; N20.0 Calculus of kidney; T40.605A Adverse effect of unspecified narcotics, initial encounter; Y92.9 Unspecified place or not applicable
CPT/HCPCS: 10021; 36415; 71260-TC; 72156-TC; 72157-TC; 72158-TC; 76536-TC; 76641-TC; 76856-TC; 77012-TC; 80048-TC; 80053-TC; 80076-TC; 82272-TC; 82378; 82607-TC; 82728-TC; 82784; 83540-TC; 83615-TC; 83735-TC; 84100-TC; 84155; 84165; 84439-TC; 84443-TC; 84703-TC; 85025-TC; 85610-TC; 85730-TC; 86300; 86304; 86334; 86704; 86706; 86800; 86803; 87081-TC; 87340; 87491; 87591; 88173-TC; 88305-TC; 93971-TC; 97116-TC; 97530-TC; 97535-TC; A9575; C9803; G0378; J1100; J2250; J2270; J2405; J3010; J7030; J7050; Q9967

== ENCOUNTER 2023-10-02 18:44 | Emergency (ER) | payer MEDICAID, OTHER ==
[~2023-10-02] VITALS: Ht 165.1 cm; Wt 55.3 kg
[2023-10-02 19:30] VITALS: TEMP 97.8
[2023-10-02] MEDS ORDERED: ACETAMINOPHEN 325 MG TABLET ONE (19:46)
[2023-10-02] MEDS: ACETAMINOPHEN 325 MG TABLET PO ONE (19:51)
[2023-10-02] MEDS ORDERED: ACET325C7 PO (21:41)
[2023-10-02] MEDS ORDERED: IBUP-1955 PO (21:41)
[2023-10-02 21:55] VITALS: BP 121/68; O2SAT 98
== END 2023-10-02 21:56 | disposition home or self-care (01) ==
LOC: ER 18:48
DX: M54.2 Cervicalgia (principal); R51.9 Headache, unspecified; Z98.890 Other specified postprocedural states; Z79.899 Other long term (current) drug therapy; V43.32XA Unspecified car occupant injured in collision with other type car in nontraffic accident, initial encounter; Y93.89 Activity, other specified; Y92.89 Other specified places as the place of occurrence of the external cause; Y99.8 Other external cause status
CPT/HCPCS: 99284; 72125; 70450; L0172

== ENCOUNTER 2025-06-09 11:55 | Inpatient (IN) | payer MEDICAID, OTHER ==
[~2025-06-09] VITALS: Ht 152.4 cm; Wt 55.3 kg
[~2025-06-09 11:55] MED LIST: ACET325C7 PO; IBUP-1955 PO
[2025-06-09] MEDS ORDERED: MORPHINE SULFATE INJ 4 MG/ML DISP.SYRIN ONE (12:47)
[2025-06-09] MEDS ORDERED: LEVO112T7 PO (12:48)
[2025-06-09] MEDS ORDERED: HYDR-3973 PO (12:48)
[2025-06-09] MEDS ORDERED: ONDANSETRON HCL/PF 4 MG/2 ML VIAL ONE (12:58)
[2025-06-09 13:03] LABS: PLATELET COUNT (AUTO) 292 K/uL (150-450); RED BLOOD CELL COUNT(AUTO) 4.23 MIL/uL (4.0-5.2); RED CELL DISTRIBUTION WIDTH 12.6 % (11.5-15.0); WHITE BLOOD COUNT (AUTO) 5.1 K/uL (4.3-11.0)
[2025-06-09] MEDS: ONDANSETRON HCL/PF - ER 4 MG/2 ML VIAL IV ONE (13:05)
[2025-06-09] MEDS: MORPHINE SULFATE INJ 2 MG/ML DISP.SYRIN IV ONE (13:05)
[2025-06-09] MEDS: PIPERACILLIN /TAZOBACTAM 3.375 G in IV D5W 50 ML IV ONE (13:06)
[2025-06-09 13:14] LABS: CALCIUM, SERUM 8.3 mg/dL (8.5-10.1); CREATININE 0.6 mg/dL (0.6-1.3); SODIUM SERUM 140 mmol/L (136-145); UREA NITROGEN, BLOOD 12 mg/dL (7-18)
[2025-06-09 13:19] LABS: ERYTHROCYTE SEDIMENTATION RATE 8 MM/HR (0-20)
[2025-06-09] MEDS: VANCOMYCIN HCL 1.25 GM in IV D5W 260 ML IV ONE (13:36)
[2025-06-09] MEDS ORDERED: MAGNESIUM HYDROXIDE 30 ML UDC PO PRN (15:30)
[2025-06-09] MEDS ORDERED: Z GUARD REMEDY 4 OZ OINT TP PRN (15:30)
[2025-06-09] MEDS ORDERED: MAG HYDROX/AL HYDROX/SIMETH 30 ML UDC PO PRN (15:30)
[2025-06-09] MEDS ORDERED: ZOLPIDEM TARTRATE 5 MG TABLET PO PRN (15:30)
[2025-06-09] MEDS ORDERED: ONDANSETRON HCL/PF 4 MG/2 ML VIAL IVP PRN (15:30)
[2025-06-09] MEDS ORDERED: DOSING PER PHARMACY-VANCOMYCIN IV XX PRN (15:30)
[2025-06-09] MEDS: IV NS 0.9% 1,000 ML IV PRN (16:04)
[2025-06-09 16:32] VITALS: BP 103/69; TEMP 97.5
[2025-06-09] MEDS: ACETAMINOPHEN 325 MG TABLET PO PRN (19:48)
[2025-06-09 20:00] VITALS: BP_SYST 102; BP_SYST 92; BP_DIAS 62; TEMP 100; TEMP 97.5; O2SAT 100
[2025-06-09] MEDS: PIPERACILLIN /TAZOBACTAM 4.5 G in IV D5W 100 ML IV SCH (20:42)
[2025-06-09] MEDS: HYDROCODONE/APAP 10/325MG TABLET PO PRN (22:55)
[2025-06-09] MEDS: diphenhydrAMINE HCL ELIX 25 MG/10 ML UDC PO PRN (23:20)
[2025-06-09] MEDS: VANCOMYCIN 750 MG in IV D5W 250 ML IV SCH (23:58)
[2025-06-10] MEDS: diphenhydrAMINE HCL ELIX 25 MG/10 ML UDC PO ONE (02:23)
[2025-06-10 06:58] LABS: PLATELET COUNT (AUTO) 236 K/uL (150-450); RED BLOOD CELL COUNT(AUTO) 3.78 MIL/uL (4.0-5.2); RED CELL DISTRIBUTION WIDTH 13.0 % (11.5-15.0); WHITE BLOOD COUNT (AUTO) 3.3 K/uL (4.3-11.0)
[2025-06-10 07:17] LABS: ASPARTATE AMINOTRANSFERASE 12.0 U/L (15-37); CALCIUM, SERUM 7.4 mg/dL (8.5-10.1); CREATININE 0.6 mg/dL (0.6-1.3); PHOSPHORUS 3.5 mg/dL (2.5-4.9); SODIUM SERUM 140.0 mmol/L (136-145); TOTAL PROTEIN, SERUM 6.1 g/dL (6.4-8.2); UREA NITROGEN, BLOOD 15.0 mg/dL (7-18)
[2025-06-10 08:00] VITALS: BP 88/58; TEMP 97.3; O2SAT 96
[2025-06-10] MEDS ORDERED: VANCOMYCIN 750 MG in IV D5W 250 ML IV SCH (10:30)
[2025-06-10] MEDS: HYDROCODONE/APAP 5/325MG TABLET PO PRN (11:29)
[2025-06-10 15:40] VITALS: BP 92/60; TEMP 98.1; O2SAT 95
[2025-06-10] MEDS: DAPTOMYCIN 500 MG in IV NS 0.9% 50 ML IV SCH (17:34)
[2025-06-10 20:00] VITALS: BP 90/62; TEMP 98.2; O2SAT 96
[2025-06-10] MEDS ORDERED: IV LR 1000 ML 1,000 ML BAG IV PRN (20:30)
[2025-06-10] MEDS: IV LR 1000 ML 1,000 ML IV ONE (20:52)
[2025-06-11 04:00] VITALS: BP 101/60
[2025-06-11 05:00] VITALS: BP 110/65
[2025-06-11] MEDS: IV LR 1000 ML 1,000 ML IV PRN (05:15)
[2025-06-11 06:05] VITALS: BP 104/69
[2025-06-11 08:00] VITALS: BP 96/77; TEMP 98.2; O2SAT 96
[2025-06-11 08:08] LABS: CALCIUM, SERUM 7.8 mg/dL (8.5-10.1); CREATININE 0.7 mg/dL (0.6-1.3); PHOSPHORUS 3.2 mg/dL (2.5-4.9); SODIUM SERUM 136.0 mmol/L (136-145); UREA NITROGEN, BLOOD 12.0 mg/dL (7-18)
[2025-06-11 08:16] LABS: PLATELET COUNT (AUTO) 227 K/uL (150-450); RED BLOOD CELL COUNT(AUTO) 3.72 MIL/uL (4.0-5.2); RED CELL DISTRIBUTION WIDTH 13.2 % (11.5-15.0); WHITE BLOOD COUNT (AUTO) 3.9 K/uL (4.3-11.0)
[2025-06-11 09:18] LABS: CREATINE KINASE, TOTAL 23 U/L (26-192)
[2025-06-11] MEDS: ENSURE ENLIVE 237 ML LIQUID (VANILLA) PO SCH (09:31)
[2025-06-11] MEDS: PIPERACILLIN /TAZOBACTAM 3.375 G in IV D5W 100 ML IV SCH (13:41)
[2025-06-11 16:00] VITALS: BP 93/66; TEMP 98.1; O2SAT 97
[2025-06-11] MEDS ORDERED: LEVOTHYROXINE SODIUM 112 MCG TABLET PO SCH (18:00)
[2025-06-11 18:37] LABS: PREGNANCY TEST URINE QUAL NEGATIVE (NEGATIVE)
[2025-06-11 20:00] VITALS: BP 116/69; TEMP 98.4; O2SAT 96
[2025-06-11 22:51] LABS: HIV-1/2 ANTIBODY NON REACTIVE (NONREACTIVE)
[2025-06-12] MEDS: LEVOTHYROXINE SODIUM 112 MCG TABLET PO SCH (01:10)
[2025-06-12 07:53] LABS: PLATELET COUNT (AUTO) 233 K/uL (150-450); RED BLOOD CELL COUNT(AUTO) 3.73 MIL/uL (4.0-5.2); RED CELL DISTRIBUTION WIDTH 12.9 % (11.5-15.0); WHITE BLOOD COUNT (AUTO) 4.7 K/uL (4.3-11.0)
[2025-06-12 08:00] VITALS: BP 102/65; TEMP 97.5; O2SAT 100
[2025-06-12 08:13] LABS: CALCIUM, SERUM 8.0 mg/dL (8.5-10.1); CREATININE 0.7 mg/dL (0.6-1.3); PHOSPHORUS 3.9 mg/dL (2.5-4.9); SODIUM SERUM 141.0 mmol/L (136-145); UREA NITROGEN, BLOOD 17.0 mg/dL (7-18)
[2025-06-12] MEDS: ENOXAPARIN SODIUM 40 MG/0.4 ML DISP.SYRIN SQ SCH (09:00)
[2025-06-12 16:00] VITALS: BP 104/72; TEMP 97.9; O2SAT 100
[2025-06-12 20:00] VITALS: BP 109/79; TEMP 98.1; O2SAT 96
[2025-06-12] MEDS ORDERED: LEVOTHYROXINE SODIUM 112 MCG TABLET PO SCH (23:06)
[2025-06-13] MEDS: LEVOTHYROXINE SODIUM 112 MCG TABLET PO SCH (01:12)
[2025-06-13 07:24] LABS: PLATELET COUNT (AUTO) 224 K/uL (150-450); RED BLOOD CELL COUNT(AUTO) 3.74 MIL/uL (4.0-5.2); RED CELL DISTRIBUTION WIDTH 12.7 % (11.5-15.0); WHITE BLOOD COUNT (AUTO) 3.8 K/uL (4.3-11.0)
[2025-06-13 07:40] LABS: CALCIUM, SERUM 8.0 mg/dL (8.5-10.1); CREATININE 0.7 mg/dL (0.6-1.3); SODIUM SERUM 142 mmol/L (136-145); UREA NITROGEN, BLOOD 18 mg/dL (7-18)
[2025-06-13 07:50] LABS: ERYTHROCYTE SEDIMENTATION RATE 17 MM/HR (0-20)
[2025-06-13 08:00] VITALS: BP 102/74; TEMP 97.3; O2SAT 98
[2025-06-13] MEDS ORDERED: DOXY100T2 PO (18:00)
[2025-06-13] MEDS ORDERED: LEVO750T46 PO (18:00)
== END 2025-06-13 19:30 | disposition home or self-care (01) | DRG 349 ==
LOC: ER 12:16 → MED 14:57
PROVIDERS: ADMIT Internal Medicine
DX: T84.89XA Other specified complication of internal orthopedic prosthetic devices, implants and grafts, initial encounter (principal); C41.9 Malignant neoplasm of bone and articular cartilage, unspecified; M86.141 Other acute osteomyelitis, right hand; M86.641 Other chronic osteomyelitis, right hand; L03.011 Cellulitis of right finger; Z98.890 Other specified postprocedural states; Z79.890 Hormone replacement therapy; Z88.1 Allergy status to other antibiotic agents; Y83.8 Other surgical procedures as the cause of abnormal reaction of the patient, or of later complication, without mention of misadventure at the time of the procedure; Y92.009 Unspecified place in unspecified non-institutional (private) residence as the place of occurrence of the external cause
CPT/HCPCS: 36415; 73130-TC; 80048-TC; 80053-TC; 82550-TC; 83735-TC; 84100-TC; 84439-TC; 84443-TC; 84481; 84703-TC; 85025-TC; 85652-TC; 86140-TC; 86803; 87040-TC; 87081-TC; 87806; A4223; G0378; J0878; J1200; J1650; J2270; J2405; J2543; J3374; J7030; J7050; J7060; J7120; Q0163